=== PATIENT | male | born 1985 | race Caucasian/White ===

== ENCOUNTER 2016-12-12 07:21 | Emergency (ER) | payer SELFPAY ==
[~2016-12-12] VITALS: Ht 170.2 cm; Wt 80.0 kg
[2016-12-12 12:11] VITALS: BP 131/63
== END 2016-12-12 13:02 | disposition home or self-care (01) ==
LOC: EMS 07:23
DX: S00.83XA Contusion of other part of head, initial encounter (principal); M25.511 Pain in right shoulder; W17.89XA Other fall from one level to another, initial encounter; Y93.89 Activity, other specified; Y92.89 Other specified places as the place of occurrence of the external cause; Y99.8 Other external cause status
CPT/HCPCS: 70450; 70486; 70551; 72125; 99284

== ENCOUNTER 2018-02-13 12:46 | Emergency (ER) | payer SELFPAY ==
[~2018-02-13] VITALS: Ht 170.2 cm; Wt 75.0 kg
[2018-02-13 15:05] VITALS: BP 119/64
== END 2018-02-13 15:54 | disposition home or self-care (01) ==
LOC: EMS 12:46
DX: M25.511 Pain in right shoulder (principal); Z98.890 Other specified postprocedural states